=== PATIENT | female | born 1990 | race Hispanic/Latino ===

== ENCOUNTER 2017-10-03 16:04 | Emergency (ER) | payer OTHER ==
[~2017-10-03] VITALS: Ht 157.5 cm; Wt 65.5 kg
[2017-10-03] MEDS ORDERED: ESTR1TAB PO (16:14)
[2017-10-03] MEDS ORDERED: ADVI200C5 PO (16:14)
--- NOTE | 2017-10-03 17:50 | REPUSA ---
CLINICAL HISTORY: Headache. TECHNIQUE: Multiple axial CT images were obtained through brain without IV contrast material. COMMENTS: The study shows normal configuration of sella turcica. There are no intra or extra-axial collections. There is no mass effect or midline shift. There is no evidence of hematoma formation. No hydrocephalus is present. The ventricles are symmetrical. No abnormal calcifications are present. No significant focal abnormalities are seen either in the posterior fossa or supratentorial compartme nt. IMPRESSION: No acute intracranial pathology. Thank you for your kind referral of this patient.
[2017-10-03] MEDS ORDERED: KETOROLAC 60 MG/2 ML VIAL (J1885) IM ONE (18:00)
[2017-10-03] MEDS ORDERED: CYCL10TA PO (18:56)
[2017-10-03 19:05] VITALS: BP 111/74
== END 2017-10-03 19:13 | disposition home or self-care (01) ==
LOC: M ED 16:04
DX: R51 Headache (principal); Z79.899 Other long term (current) drug therapy; Z88.5 Allergy status to narcotic agent
CPT/HCPCS: 70450; 96372; 99283; J1885

== ENCOUNTER 2018-12-12 19:21 | Outpatient (CLI) | payer OTHER ==
[~2018-12-12] VITALS: Ht 157.5 cm; Wt 65.1 kg
[~2018-12-12 19:21] MED LIST: ADVI200C5 PO; CYCL10TA PO; ESTR1TAB PO
[2018-12-12 20:00] VITALS: BP 100/55
[2018-12-12] MEDS ORDERED: LR 1,000 ML IV ONE (20:15)
[2018-12-12 21:48] VITALS: BP 106/59
== END 2018-12-12 22:20 | disposition home or self-care (01) ==
LOC: M LDO 19:21
PROVIDERS: ATTEND Obstetrics & Gynecology
DX: O21.2 Late vomiting of pregnancy (principal); O26.893 Other specified pregnancy related conditions, third trimester; R10.30 Lower abdominal pain, unspecified; O62.2 Other uterine inertia; Z3A.32 32 weeks gestation of pregnancy
CPT/HCPCS: 59025; G0378; G0463

== ENCOUNTER 2019-02-04 06:50 | Inpatient (IN) | payer OTHER ==
[~2019-02-04] VITALS: Ht 157.5 cm; Wt 68.2 kg
[2019-02-04] VITALS (43 sets, daily range): BP systolic 96–172; BP diastolic 52–92
[2019-02-04] MEDS ORDERED: LACTATED RINGER'S 1000 ML IV STA (09:09)
[2019-02-04] MEDS ORDERED: OXYTOCIN DRIP 30 UNITS in APPROPRIATE DILUENT 1 EA IV SCH (09:15)
--- NOTE | 2019-02-04 09:21 | HPEPDOC ---
Obstetrical History & Physical General Date of Admission February 04, 2019 History of Present Illness Gretel is a 28yo with SIUP at 39w5d by lmp c/w 8wk u/s who presents this morning for clear loss of fluid in the middle of the night. She was also feeling less movement when she called earlier, which has improved. Feeling cramping and some rectal pressure. No vaginal bleeding. No f/c/n/v/CP/SOB. Chief Complaint: LOF, term Information Provided By: Patient Care Care: Good Care Dating Final EDC: Feb 06, 2019 Final EDC by: LMP, 1st trimester (US) Antepartum Course Diagnos(e)s Rh negative, received Rhogam Nov Height (inches): 63 Pre- weight (lbs.): 129 Admission Weight (lbs.): 154 Change in Weight (lbs.): 25 Past Medical History Past Obstetrical History : Past Obstetrical History: [employer] History: No pertinent history Past Medical History Medical History benign Surgical History: Denies/None Family History Significant Family History: No pertinent family hx Social History Marital Status: Family situation: Spouse/partner home Psychosocial History: No pertinent psych hx * Smoker: non-smoker Alcohol: Denies Drugs: denies Imunizations Tdap status: current Influenza Status: declined Allergies Coded Allergies: MS - Codeine (Verified Allergy, Unknown, 'strange reaction', 10/03/17) Medications Scheduled Estradiol (Estradiol) 1 Mg Tab, 1 MG PO DAILY Scheduled PRN Cyclobenzaprine HCl (Cyclobenzaprine HCl) 10 Mg Tab, 10 MG PO TID PRN for PAIN Miscellaneous Medications Ibuprofen (Advil) 200 Mg Cap, 200 MG PO for PAIN Physical Examination Physical Examination GENERAL: Alert and oriented times three. BREAST: . ABDOMEN: Gravid and non-tender to touch. FETUS: Is vertex (VTX) by sterile vaginal examination (SVE) EXTREMITIES: No edema Grossly ruptured, clear fluid. Nitrazine positive. Pertinent Laboratoy Data Blood Type: O- RBC Antibody Screen: Negative HIV: Negative Hepatitis B: Negative Hepatitis C: Unknown Rapid Plasma Reagin: Nonreactive Rubella: Immune Varicella: Immune Chlamydia/Gonorrhea: Negative Group B Streptococcus: Negative Quad Screen Test: Negative Cystic Fibrosis: Negative Glucose Tolerance Test: 76 Anatomy Ultrasound Ultrasound Date: Nov 23, 2018 Placenta Location: Anterior Normal Anatomy: Yes Placenta Previa: No Steroid Therapy Steroid Therapy: No Vaginal Examination Dilation: 4 cm Effacement: 80% Station: -1, 0 Cervical Consistency: Soft Cervical Position: Posterior Presentation: Cephalic presentation Assessment Heart Rate (FHR): 140 Variability: Moderate Accelerations: Positive Decelerations: None Tocometer Contractions: Yes Frequency: irregular, greater than 9 min/apart Duration: less than 60 seconds Strength: palpated as mild Assessment/Plan Assessment Gretel is a 28yo with SIUP at 39w5d by lmp c/w 8wk u/s with SROM, clear, early this morning. Grossly ruptured, nitrazine positive. Starting to feel cramping, but ctx are >8 min apart. SCE 4/80/-1. Cephalic by SCE. GBS negative. Vitals wnl, benign exam. Cat I FHRT. PMhx: benign, O negative MBT received rhogam Nov Plan Admit and orient. Buffer Automatic and consent. Diet: clear liquids Group B Streptococcus (GBS) negative Labs and intravenous (IV) per unit protocol. Counseled on Pitocin and augmentation of labor (IOL). Lactated Ringers (LR): Bolus 500 mL, then at 125 mL/hr. Anticipate normal spontaneous delivery () Candidate for epidural as desired MD Pilo Chairez Katrina D MD Feb 04, 2019 09:21
[2019-02-04] MEDS: LR 1,000 ML IV SCH (09:44)
[2019-02-04 09:58] LABS: HEMATOCRIT 34.5 % (36.0-47.0); HEMOGLOBIN 11.4 g/dl (12.0-15.5); MEAN CORPUSCULAR HEMOGLOBIN 28.5 pg (27.0-33.0); MEAN CORPUSCULAR VOLUME 86.3 fl (80.0-96.0); PLATELET COUNT, AUTOMATED 261 10^3/uL (150-450); WHITE BLOOD COUNT 8.6 10^3/uL (4.0-10.0)
[2019-02-04] MEDS ORDERED: FENTANYL 2MCG/ML ROPIVACAINE 0.2% IN 0.9% NACL 100ML IVBAG As Ordered ONE (12:51)
[2019-02-04] MEDS: FENTANYL/ROPIVACAINE/NACL BAG 100 ML EPIDURAL SCH (13:50)
[2019-02-04] MEDS ORDERED: ePHEDrine SULFATE 25 MG/5 ML(5MG/ML) SYRINGE IV PRN (14:15)
[2019-02-04] MEDS ORDERED: LACTATED RINGER'S 1000 ML IV PRN (14:15)
[2019-02-04] MEDS ORDERED: EPIDURAL COMMENT XX SCH (14:15)
[2019-02-04] MEDS ORDERED: NALOXONE INJ 0.4 MG/1 ML VIAL (J2310) IV PRN (14:15)
[2019-02-04] MEDS ORDERED: ONDANSETRON 4MG/2ML VIAL (J2405) IV PRN (14:15)
[2019-02-04] MEDS ORDERED: diphenhydrAMINE INJ 50MG/ML VIAL (J1200) IV PRN (14:15)
[2019-02-04] MEDS ORDERED: REFRIGERATOR IV KEYS XX PRN (14:15)
[2019-02-04] MEDS ORDERED: EPIDURAL/PCA KEYS XX PRN (14:15)
--- NOTE | 2019-02-04 17:21 | IPNPDOC ---
Text Note Date of Service The patient was seen on 02/04/19. NOTE Intrapartum Progress Note Pt is doing well, has epidural and only feels ctx as vaginal pressure. We started pushing approx 30min ago and she is pushing effectively. Vitals wnl, afebrile SCE: C/C/+1 Cat I FHRT, now Cat II with variables only during the pushes, mod mare, +accels Toftrees: ctx q2-4min Will continue pushing Anticipate soon Dr. Sally Daigle MD VS,Delmer, I+O VS, Delmer, I+O Laboratory Tests 02/04/19 09:30 Red Blood Count 4.00, Mean Corpuscular Volume 86.3, Mean Corpuscular Hemoglobin 28.5, Mean Corpuscular Hemoglobin Concent 33.0, Red Cell Distribution Width 13.8 Vital Signs Date Time Temp Pulse Resp B/P (MAP) Pulse Ox O2 Delivery O2 Flow Rate FiO2 02/04/19 14:36 78 101/59 (73) 02/04/19 14:03 98.6 16 Sally Daigle MD Feb 04, 2019 17:21
[2019-02-04] MEDS ORDERED: OXYTOCIN 30 UNITS IN 0.9% NaCl 500ML IV BAG (J2590) As Ordered ONE (19:25)
[2019-02-04] MEDS: OXYTOCIN DRIP 30 UNITS in APPROPRIATE DILUENT 1 EA IV SCH ×2 (19:32→20:51)
[2019-02-04] MEDS ORDERED: PRENTAB9 PO (20:20)
[2019-02-04] MEDS ORDERED: LR 1,000 ML IV SCH (20:20)
[2019-02-04] MEDS ORDERED: miSOPROStol 200 MCG TAB (S0191) PR ONE (20:30)
[2019-02-04] MEDS ORDERED: METHYLERGONOVINE MALEATE 0.2 MG/ML VIAL (J2210) IM ONE (20:30)
[2019-02-04] MEDS ORDERED: DIBUCAINE 1% OINTMENT 30GM TOP PRN (20:30)
[2019-02-04] MEDS ORDERED: RHOGAM 300 MCG (1500 IU) INJ (J2790) IM SCH (20:30)
[2019-02-04] MEDS ORDERED: MEASLES,MUMPS,RUBELLA VACCINE INJ (MMR-II) (90707) SC SCH (20:30)
[2019-02-04] MEDS ORDERED: DOCUSATE SODIUM 100 MG CAP PO PRN (20:30)
[2019-02-04] MEDS ORDERED: CARBOPROST TROMETHAMINE 250 MCG/ML AMP IM ONE (20:30)
[2019-02-04 20:47] LABS: HEMATOCRIT 30.1 % (36.0-47.0); MEAN CORPUSCULAR HEMOGLOBIN 28.9 pg (27.0-33.0); MEAN CORPUSCULAR HGB CONC 33.2 g/dl (32.0-36.5); PLATELET COUNT, AUTOMATED 258 10^3/uL (150-450); RED BLOOD COUNT 3.46 10^6/uL (4.00-5.40); WHITE BLOOD COUNT 16.4 10^3/uL (4.0-10.0)
--- NOTE | 2019-02-04 20:47 | DNPDOC ---
[facility] Delivery Note Delivery Note DATE OF DELIVERY: 04 Feb 2019 PREDELIVERY DIAGNOSIS: 39w5d SIUP with SROM POST DELIVERY DIAGNOSIS: Delivered, PPH PROCEDURE: Spontaneous vaginal delivery MANAGER CASINO: Dr. Sally Daigle MD ANESTHESIA: epidural ESTIMATED BLOOD LOSS: 700 mL. FINDINGS: 7 pound 5 ounce (3320g) male infant, Score 8/9, loose nuchal cord and right compound arm. PPH related to atony treated with methergine, hemabate, cytotec, pitocin x 2 bags, and ultimately Bakri intra-uterine balloon DELIVERY SUMMARY: Gretel is a 28yo [id number] s/p at 39w5d after presenting with SROM, delivering at 1825 on 02/04/19. She presented at 4cm and with pitocin augmentation progressed to C/C/0 at which point she began pushing. She had received an epidural and had good pain control. head delivered OA, restituted RENETTA, loose nuchal cord reduced. Left anterior shoulder delivered easily followed by posterior shoulder and corpus- there was a right compound arm. vigorous with spontaneous cry, placed on maternal abdomen, nose and mouth suctioned with bulb suction, apgars 8/9. After approximately 2 minutes, cord was clamped x2 and cut by FOB. Cord blood obtained for MBT O neg. Uterine massage was performed, traction was placed on the umbilical cord, placenta delivered spontaneously and intact with 3 vessel marginally inserted cord. IV pitocin was given per protocol, bimanual massage was performed and uterus was then firm at u-1cm. Inspection of perineum and vagina revealed a 2mll and left labial laceration- I began the repair, but the patient continued to have vaginal bleeding intermitten tly, so I returned my attention to a uterine sweep which revealed only blood clots, no membranes. The uterus would become firm but then atonic again. She was given 0.2mg IM methergine, but continued to have bleeding with uterine massage. At that point, I walked the cervix with ring forceps and was able to see the entire cervix which was without laceration. She continued to have bleeding with uterine massage, so she was given 250mcg hembate IM as well as 800mcg of [place] cytotec. She continued to have bleeding with uterine massage, so at that point, given the increasing EBL, I made the decision to place a Bakri balloon which was filled with 180ml of NS. The patient tolerated all of this well. The Bakri was hooked up to a collection bag and the output was minimal. At that point I returned my attention to the laceration repair which was completed with 3-0 vicryl in routine fashion with excellent cosmesis and hemostasis. By the end of the repair, the Bakri bag collection remained minimal. I placed a bhatia catheter in the bladder. Patient had been given a bolus of IVF during this time because she began to feel light headed, but her vital signs were stable. Another bag of IV pitocin was initiated before I left the room. All counts were correct at the end of the procedure- I used a total of 20 laparotomy sponges, and when these were weighed and added to the EBL collected in the under-buttock drape, altogether EBL was 700ml. I have ordered 3g IV unasyn q6hr to be given while Bakri is in place. CBC will be performed now and again in the morning. I briefly discussed the possibility of blood transfusion with the patient and her in the event that her H/H is very low, or if she is symptomatic when up and walking. Tomorrow the Bakri will be taken down incrementally. I answered all of the couple's questions regarding the PPH and the plan of care. Mom and were doing well when I left the room. MD Pilo Chairez Katrina D MD Feb 04, 2019 20:47
[2019-02-04] MEDS: AMPICILLIN SOD/SULBACTAM SOD 3 GM in D5W MINI-BAG PLUS 100 ML IV SCH (21:08)
[2019-02-04] MEDS ORDERED: LOPERAMIDE 2 MG CAP PO PRN (22:45)
[2019-02-04] MEDS ORDERED: LOPERAMIDE 2 MG CAP PO ONE (22:45)
[2019-02-04] MEDS: IBUPROFEN 800 MG TAB PO PRN (23:00)
[2019-02-05] MEDS: ACETAMINOPHEN 500 MG TAB PO PRN ×2 (00:04→13:26)
[2019-02-05] MEDS: FENTANYL/ROPIVACAINE/NACL BAG 100 ML EPIDURAL SCH ×2 (00:15→10:15)
[2019-02-05 01:45] VITALS: BP 105/58
[2019-02-05] MEDS: AMPICILLIN SOD/SULBACTAM SOD 3 GM in D5W MINI-BAG PLUS 100 ML IV SCH ×4 (03:22→21:43)
[2019-02-05] MEDS: LR 1,000 ML IV SCH (04:15)
[2019-02-05 05:27] VITALS: BP 101/54
[2019-02-05 07:40] LABS: HEMATOCRIT 24.9 % (36.0-47.0); HEMOGLOBIN 8.3 g/dl (12.0-15.5); MEAN CORPUSCULAR HEMOGLOBIN 28.7 pg (27.0-33.0); MEAN CORPUSCULAR HGB CONC 33.3 g/dl (32.0-36.5); MEAN CORPUSCULAR VOLUME 86.2 fl (80.0-96.0); PLATELET COUNT, AUTOMATED 209 10^3/uL (150-450); RED BLOOD COUNT 2.89 10^6/uL (4.00-5.40); WHITE BLOOD COUNT 11.4 10^3/uL (4.0-10.0)
[2019-02-05] MEDS: IBUPROFEN 800 MG TAB PO PRN ×2 (08:14→22:42)
--- NOTE | 2019-02-05 08:21 | IPNPDOC ---
Progress Note Date of Service: Feb 05, 2019 Day#: 1 Progress Note PPD 1 SUBJECT: Gretel is a 28yo [id number] s/p at 39w5d after presenting with SROM, complicated by PPH (EBL 700ml) related to atony treated with hemabate/methergine/cytotec/pitocin x2 bags/and ultimately a Bakri intra-uterine balloon. She delivered at 18:25 on 02/04/19, and she is doing well on day # 1. Had a 2mll and left labial laceration that was repaired. She is receiving IV Unasyn for uterine sweeps + Bakri. Has bhatia catheter in place draining clear yellow urine. She has not yet ambulated. Tolerating clear liquids, hasn't yet had a real meal. Breast feeding without issue. Only complaint is uterine (period-like) cramps. No f/c/n/v/CP/SOB. OBJECTIVE: VITAL SIGNS: Within normal limits, normotensive, afebrile. Alert and oriented times three. Abdomen: Fundus firm at U-1. Soft, appropriately tender to palpation Extremities: no pain with palpation of calves Total output from Bakri: approx 75cc in bag Labs: admission H/H: 11.4/34.5 immediate post-delivery H/H: 10/30.1 02/05 post-delivery H/H: 8.3/24.9 ASSESSMENT: Gretel is a 28yo [id number] s/p at 39w5d after presenting with SROM, complicated by PPH (EBL 700ml) related to atony treated with hemabate/methergine/cytotec/pitocin x2 bags/and ultimately a Bakri intra-uterine balloon. She delivered at 18:25 on 02/04/19, and she is doing well on day # 1. Vitals within normal limits, afebrile, hemodynamically stable with no evidence of infection. PLAN: 1. Routine care 2. Continue IV Unasyn and bhatia catheter until Bakri is removed 3. Discussed with Dr. Leger taking down the Bakri today, it will be done incrementally and I discussed this with patient and her 4. Tylenol and Motrin for pain 5. Encourage breast feeding and ambulation. 6. Ok to shower once Bakri is removed Dr. Sally Daigle MD VS, I&O, 24H, Fishbone Vital Signs/I&O Vital Signs Date Time Temp Pulse Resp B/P (MAP) Pulse Ox O2 Delivery O2 Flow Rate FiO2 02/05/19 05:27 99.3 74 18 101/54 (70) I&O- Last 24 Hours up to 6 AM 02/05/19 06:00 Intake Total 3300 ml Output Total 2650 ml Balance 650 ml Laboratory Data 24H LABS Laboratory Tests 2 02/04/19 09:15: Serology Scanned Report Hepatitis B Testing 02/04/19 09:30: Nucleated Red Blood Cells % (auto) 0.0, Syphilis Serology NONREACTIVE 02/04/19 20:39: Nucleated Red Blood Cells % (auto) 0.0 02/05/19 07:13: Nucleated Red Blood Cells % (auto) 0.0 CBC/BMP Laboratory Tests 02/04/19 09:30 Red Blood Count 4.00, Mean Corpuscular Volume 86.3, Mean Corpuscular Hemoglobin 28.5, Mean Corpuscular Hemoglobin Concent 33.0, Red Cell Distribution Width 13.8 02/04/19 20:39 Red Blood Count 3.46 L, Mean Corpuscular Volume 87.0, Mean Corpuscular Hemoglobin 28.9, Mean Corpuscular Hemoglobin Concent 33.2, Red Cell Distribution Width 13.6 02/05/19 07:13 Red Blood Count 2.89 L, Mean Corpuscular Volume 86.2, Mean Corpuscular Hemoglobin 28.7, Mean Corpuscular Hemoglobin Concent 33.3, Red Cell Distribution Width 13.9 Sally Daigle MD Feb 05, 2019 08:21
[2019-02-05] MEDS: PRENATAL VITAMINS CHEWABLE TABLET PO SCH (09:00)
[2019-02-05 10:12] VITALS: BP 104/63
[2019-02-05 18:08] VITALS: BP 121/58
[2019-02-05 22:00] VITALS: BP 100/58
[2019-02-06 02:00] VITALS: BP 100/56
[2019-02-06] MEDS: AMPICILLIN SOD/SULBACTAM SOD 3 GM in D5W MINI-BAG PLUS 100 ML IV SCH (03:35)
[2019-02-06 06:00] VITALS: BP 100/59
[2019-02-06] MEDS: IBUPROFEN 800 MG TAB PO PRN (07:52)
[2019-02-06] MEDS: PRENATAL VITAMINS CHEWABLE TABLET PO SCH (07:52)
--- NOTE | 2019-02-06 08:58 | IPNPDOC ---
Text Note Date of Service The patient was seen on 02/06/19. NOTE PPD 2 SUBJECT: Gretel is a 28yo [id number] s/p at 39w5d after presenting with SROM, complicated by PPH (EBL 700ml) related to atony treated with hemabate/methergine/cytotec/pitocin x2 bags/and ultimately a Bakri intra-uterine balloon. She delivered at 18:25 on 02/04/19, and she is doing well on day #2. Had a 2mll and left labial laceration that was repaired. Bakri was taken down yesterday incrementally, finally removed around 1700. She received IV Unasyn for uterine sweeps + Bakri. She reports her bleeding is like a normal period. Her bhatia catheter was removed yesterday evening and she endorses voiding spontaneously without issue since that time. She is ambulating without lightheadedness or dizziness. Tolerating regular diet. Breast feeding without issue. She has uterine cramping well controlled with motrin/tylenol. No f/c/n/v/CP/SOB. OBJECTIVE: VITAL SIGNS: Within normal limits, normotensive, afebrile. Alert and oriented times three. Abdomen: Fundus firm at U-1. Soft, appropriately tender to palpation, no rebound/guarding Extremities: no pain with palpation of calves Labs: admission H/H: 11.4/34.5 immediate post-delivery H/H: 10/30.1 02/05 post-delivery H/H: 8.3/24.9 ASSESSMENT: Gretel is a 28yo [id number] s/p at 39w5d after presenting with S ROM, complicated by PPH (EBL 700ml) related to atony treated with hemabate/methergine/cytotec/pitocin x2 bags/and ultimately a Bakri intra-uterine balloon. She delivered at 18:25 on 02/04/19, and she is doing well on day # 2. Bakri removed yesterday evening without incident and bleeding has been appropriate since. No sx of anemia. Vitals within normal limits, afebrile, he modynamically stable with no evidence of infection. PLAN: 1. Discharge home this afternoon 2. Tylenol and Motrin for pain 3. Encourage breast feeding and ambulation. 4. Discussed return precautions at length 5. visit in 6 weeks in clinic, or sooner if any issues 6. Vaginal rest full [address] Sally Daigle MD VS,Delmer, I+O VS, Delmer, I+O Vital Signs Date Time Temp Pulse Resp B/P (MAP) Pulse Ox O2 Delivery O2 Flow Rate FiO2 02/06/19 06:00 99.2 71 17 100/59 (73) 98 I&O- Last 24 Hours up to 6 AM 02/06/19 06:00 Intake Total 200 ml Output Total 2005 ml Balance -1805 ml Sally Daigle MD Feb 06, 2019 08:58
[2019-02-06 09:50] VITALS: BP 99/62
[2019-02-06 14:00] VITALS: BP 105/61
[2019-02-06] MEDS ORDERED: MAPA500T2 PO (14:10)
[2019-02-06] MEDS ORDERED: IBUP-1114 PO (14:10)
== END 2019-02-06 16:00 | disposition home or self-care (01) | DRG 806 ==
LOC: M LDO 06:50 → M LDI 09:11 → M OBS 02-05 01:21
PROVIDERS: ADMIT Obstetrics & Gynecology; ATTEND Obstetrics & Gynecology
PROC: 10E0XZZ Delivery of Products of Conception, External Approach (ICD-10-PCS; principal; 2019-02-04)
PROC: 0KQM0ZZ Repair Perineum Muscle, Open Approach (ICD-10-PCS; 2019-02-04)
DX: O32.6XX0 Maternal care for compound presentation, not applicable or unspecified (principal); O72.1 Other immediate postpartum hemorrhage; Z37.0 Single live birth; Z3A.39 39 weeks gestation of pregnancy; O69.82X0 Labor and delivery complicated by other cord entanglement, without compression, not applicable or unspecified; O70.1 Second degree perineal laceration during delivery